=== PATIENT | female | born 1960 | race Caucasian/White ===

== ENCOUNTER → 2017-02-07 | Outpatient (CLI) | payer OTHER ==
[~2017-02-07] MED LIST: ALPRAZOLAM; INDERAL LA120 MG PO; LEVAQUIN 5500 MG/TAB PO; PYRIDIUM 100MG100 MG PO
== END ==
LOC: COL.CARD 14:22
DX: R09.89 Other specified symptoms and signs involving the circulatory and respiratory systems (principal); R00.2 Palpitations

== ENCOUNTER → 2018-07-24 | Outpatient (CLI) | payer OTHER | LOC: MC.RAD 14:20 | DX: Z12.31 Encounter for screening mammogram for malignant neoplasm of breast (principal) ==

== ENCOUNTER → 2019-12-13 | Outpatient (CLI) | payer OTHER | LOC: MC.RAD 16:00 | DX: Z12.31 Encounter for screening mammogram for malignant neoplasm of breast (principal); N63.10 Unspecified lump in the right breast, unspecified quadrant ==

== ENCOUNTER → 2020-12-27 | Outpatient (CLI) | payer BC ==
--- NOTE | 2020-12-26 12:55 | NUR ---
LMOM WITH INSTRUCTIONS AND CALL BACK NUMBER. NEED ALLERGIES, MEDS AND PMH. INSTRUCTED NOT TO TAKE BP MEDS THAT END IN "LOL"
[~2020-12-27] MED LIST changes: +COZAAR100 MG PO; +FOLIC ACID 11 MG/TA1 PO; +NORVASC 10MG10 MG PO; +XANAX 0.5MG0.5 MG PO
[2020-12-27 11:03] VITALS: BP 166/99; PULSE 81
== END ==
LOC: COL.CARD 10:40
DX: R06.09 Other forms of dyspnea (principal)
CPT/HCPCS: A9500

== ENCOUNTER → 2021-01-03 | Outpatient (CLI) | payer BC ==
--- NOTE | 2021-01-03 12:42 | NUR ---
PATIENT REFERRED FOR PFT BY [facility] WITH DIAGNOSIS OF DYSPNEA ON EXERTION. PATIENT REFUSING ALBUTEROL AND ANY MEDICATIONS WITH SULFATE AND SULFA FAMILIES. CALLED PHARMACY TO SEE IF IT WOULD BE OKAY FOR PATIENT TO USE XOPENEX INSTEAD OF ALBUTEROL. PHARMACY SAID IT WOULD BE FINE IF SHE TOOK ALBUTEROL AND THEY SHOULD NOT HAVE A REACTION. PATIENT WAS INFORMED THAT PHARMACIST WAS CALLED AND THE MEDICATION WOULD NOT GIVE THEM AN ALLERGIC REACTION. PATIENT STILL FELT UNCOMFORTABLE SHE HAS PROBLEMS BEATHING WHEN TAKING ANY MEDICATION WITH THESE IN THEM AND REFUSED. PHYSICAN WAS CALLED TO SEE HOW THEY WOULD LIKE TO PROCEED. SPOKE WITH RN AT CLINIC INFORMING THEM OF THE PATIENT AND ASKED IF THEY WOULD JUST LIKE SPIROMETRY IT DOES NOT INVOLVE ANY MEDICATION. THEY SAID YES TO JUST SPIROMETRY RESULTS. PATIENT FOLLOWED DIRECTIONS WELL AND HAD GOOD EFFORT.
== END ==
LOC: COL.PUL 11:30
DX: I51.7 Cardiomegaly (principal); R06.00 Dyspnea, unspecified